=== PATIENT | male | born 1960 | race African-American/Black ===

== ENCOUNTER 2023-09-02 15:47 | Emergency (ER) | payer MEDICARE, BC ==
[~2023-09-02] VITALS: Ht 188 cm; Wt 121.0 kg
[2023-09-02 15:53] VITALS: O2SAT 100
[2023-09-02 16:09] VITALS: TEMP 98.5
[2023-09-02 16:28] LABS: BASOPHILS % 0.5 % (0.0-2.0); EOSINOPHILS % 1.4 % (0.0-5.0); HEMATOCRIT. 49.6 % (42.0-52.0); HEMOGLOBIN. 16.2 g/dL (14.0-18.0); LYMPHOCYTES % 38.8 % (20.0-50.0); MEAN CORPUSCULAR HEMOGLOBIN 28.5 pg (28.0-32.0); MEAN CORPUSCULAR HGB CONC 32.6 g/dL (31.0-37.0); MEAN CORPUSCULAR VOLUME 87.4 fL (80.0-94.0); MEAN PLATELET VOLUME 7.9 fl (7.4-10.4); MONOCYTES % 12.2 % (2.0-8.0); NEUTROPHILS % 47.1 % (40.0-76.0); PLATELET 275 x1000/uL (130-400); RED BLOOD CELL COUNT 5.67 mill/uL (4.7-6.1); RED CELL DISTRIBUTION WIDTH 16.3 % (11.6-14.6); WHITE BLOOD COUNT 5.5 x1000/uL (4.5-11.0)
[2023-09-02 16:33] LABS: CHLORIDE 109 mEq/L (98-107); POTASSIUM 4.3 mEq/L (3.5-5.1); SODIUM 140 mEq/L (136-145)
[2023-09-02 16:34] LABS: CARBON DIOXIDE 24 mEq/L (21-32)
[2023-09-02 16:39] LABS: CREATININE 1.4 mg/dL (0.6-1.3); GLUCOSE 276 mg/dL (70-105); UREA NITROGEN BLOOD 14 mg/dL (9-23)
[2023-09-02 16:40] LABS: TROPONIN I HIGH SENSITIVITY 19 ng/L (3.0-53)
[2023-09-02] MEDS: SODIUM CHLORIDE 0.9% 1,000 ML IV ONE (17:05)
[2023-09-02 18:15] VITALS: BP 130/81; PULSE 60; RESP 16
[2023-09-02 18:17] LABS: PROTHROMBIN TIME 11.1 sec (9.6-11.0)
== END 2023-09-02 18:18 | disposition left against medical advice (07) ==
LOC: ER 15:47 → EDBEDREQTM 18:06 → EDBEDREQ 18:06 → ER 18:18 → CANBEDREQ 18:19
DX: R55 Syncope and collapse (principal); N17.9 Acute kidney failure, unspecified; I50.9 Heart failure, unspecified; E11.9 Type 2 diabetes mellitus without complications
CPT/HCPCS: 99285; 71045; 80048; 83880; 85025; 85610; 84484; 36415; 93005; J7030